=== PATIENT | male | born 1995 | race Caucasian/White ===

== ENCOUNTER 2017-05-24 01:55 | Emergency (ER) | payer SELFPAY ==
[~2017-05-24] VITALS: Ht 172.7 cm; Wt 65.9 kg
[2017-05-24] MEDS ORDERED: LEXAPRO20 MG PO (02:00)
[2017-05-24 02:01] VITALS: TEMP 98
[2017-05-24] MEDS ORDERED: AMOXICILLIN 8751 TAB PO (03:16)
[2017-05-24 03:24] VITALS: BP 122/78; PULSE 88
== END 2017-05-24 03:25 | disposition home or self-care (01) ==
LOC: COL.ER 01:55
DX: S09.93XA Unspecified injury of face, initial encounter (principal); S01.411A Laceration without foreign body of right cheek and temporomandibular area, initial encounter; S01.511A Laceration without foreign body of lip, initial encounter; Z23 Encounter for immunization; W54.0XXA Bitten by dog, initial encounter

== ENCOUNTER 2017-06-02 15:41 | Emergency (ER) | payer SELFPAY ==
[~2017-06-02 15:41] MED LIST: AMOXICILLIN 8751 TAB PO; LEXAPRO20 MG PO
[2017-06-02 15:49] VITALS: BP 134/89; PULSE 73; TEMP 97.6
== END 2017-06-02 15:57 | disposition home or self-care (01) ==
LOC: COL.ER 15:41
DX: S01.81XD Laceration without foreign body of other part of head, subsequent encounter (principal); X58.XXXD Exposure to other specified factors, subsequent encounter